=== PATIENT | female | born 1985 | race Caucasian/White ===

== ENCOUNTER 2017-11-25 16:10 | Emergency (ER) | payer BC ==
[~2017-11-25] VITALS: Ht 170.2 cm; Wt 81.7 kg
[~2017-11-25 16:10] MED LIST: Hair, Skin & N1 EACH PO
[2017-11-25] MEDS ORDERED: PROG100 (16:15)
[2017-11-25 16:52] LABS: BASOPHILS ABSOLUTE AUTO 0.03 K/mm3 (0.00-0.23); BASOPHILS PERCENT AUTO 0 % (0-2); EOSINOPHILS ABSOLUTE AUTO 0.44 K/mm3 (0.00-0.68); EOSINOPHILS PERCENT AUTO 4 % (0-6); Hematocrit 42.4 % (33.0-51.0); Hemoglobin 14.1 g/dL (11.5-16.0); IMMATURE GRAN ABSOLUTE AUTO 0.02 K/mm3 (0.00-0.10); IMMATURE GRAN PERCENT AUTO 0 % (0-1); LYMPHOCYTES ABSOLUTE AUTO 3.67 K/mm3 (0.84-5.20); LYMPHOCYTES PERCENT AUTO 30 % (21-46); MONOCYTES ABSOLUTE AUTO 0.59 K/mm3 (0.16-1.47); MONOCYTES PERCENT AUTO 5 % (4-13); Mean Corpuscular HGB 30.3 pg (26.0-34.0); Mean Corpuscular HGB Conc 33.3 g/dL (31.5-36.5); Mean Corpuscular Volume 91 fL (80-100); Mean Platelet Volume 10.3 fL (9.1-12.4); NEUTROPHILS ABSOLUTE AUTO 7.69 K/mm3 (1.96-9.15); NEUTROPHILS PERCENT AUTO 62 % (41-73); Platelet Count 360 K/mm3 (150-400); RDW Coefficient Variation 13.6 % (11.7-14.2); RDW Standard Deviation 44.6 fL (35.1-46.3); Red Blood Cell Count 4.66 M/mm3 (3.80-5.20); White Blood Cell Count 12.44 K/mm3 (4.00-11.30)
[2017-11-25 17:29] LABS: Alanine Aminotransfer (ALT/SGP 26 U/L (12-78); Albumin, Blood 4.1 g/dL (3.4-5.0); Albumin/Globulin Ratio 1.1 (0.8-1.8); Alk Phos 63 U/L (50-136); Anion Gap 7 mmol/L (6-16); Aspartate Aminotrans (AST/SGOT 15 U/L (12-37); Bilirubin, Total 0.3 mg/dL (0.1-1.0); Blood Urea Nitrogen 10 mg/dL (8-24); Bun/Creatinine Ratio 13.4 (12.0-20.0); CO2, Blood 27 mmol/L (21-32); Calcium, Blood 8.7 mg/dL (8.5-10.1); Chloride, Blood 105 mmol/L (98-108); Creatinine, Blood 0.75 mg/dL (0.40-1.00); Globulin, Blood 3.7 g/dL (2.2-4.0); Glomerular Filtration Rate >60 (60-); Glucose, Blood 79 mg/dL (70-99); Potassium, Blood 3.4 mmol/L (3.5-5.5); Sodium, Blood 139 mmol/L (136-145); Total Protein, Blood 7.8 g/dL (6.4-8.2); Troponin I <0.015 ng/mL (0.000-0.040)
== END 2017-11-25 19:10 | disposition home or self-care (01) ==
LOC: ER 16:10
PROVIDERS: Physician Assistant
DX: R07.89 Other chest pain (principal); M79.661 Pain in right lower leg; Z88.5 Allergy status to narcotic agent; Z87.891 Personal history of nicotine dependence
CPT/HCPCS: 36415; 71020; 80053; 84484; 85025; 85379; 93005; 93010; 93971; 99284

== ENCOUNTER 2018-02-12 21:15 | Emergency (ER) | payer BC ==
[~2018-02-12] VITALS: Ht 170.2 cm; Wt 79.4 kg
[~2018-02-12 21:15] MED LIST changes: +PROG100
[2018-02-12] MEDS ORDERED: ALBU90OI INH (22:38)
== END 2018-02-12 23:03 | disposition home or self-care (01) ==
LOC: ER 21:15
DX: J40 Bronchitis, not specified as acute or chronic (principal); Z88.5 Allergy status to narcotic agent; Z87.891 Personal history of nicotine dependence
CPT/HCPCS: 99282

== ENCOUNTER 2019-03-05 11:23 | Day surgery (SDC) | payer BC ==
[~2019-03-05] VITALS: Ht 170.2 cm; Wt 83.5 kg
[~2019-03-05 11:23] MED LIST changes: +ALBU90OI INH; +Multivitamin1 EAC1 PO; +PANT40 PO; +PROG100 PO; +Zantac150 MG PO
[2019-03-05] MEDS ORDERED: HYDCOR20 (11:48)
== END 2019-03-05 13:35 | disposition home or self-care (01) ==
LOC: ORSCSDS 11:23
PROVIDERS: Internal Medicine Gastroenterology
PROC: 0DJD8ZZ Inspection of Lower Intestinal Tract, Via Natural or Artificial Opening Endoscopic (ICD-10-PCS; principal; 2019-03-05 12:45)
PROC: 0DB68ZX Excision of Stomach, Via Natural or Artificial Opening Endoscopic, Diagnostic (ICD-10-PCS; principal; 2019-03-05 12:45)
PROC: 0DB98ZX Excision of Duodenum, Via Natural or Artificial Opening Endoscopic, Diagnostic (ICD-10-PCS; principal; 2019-03-05 12:45)
DX: K62.5 Hemorrhage of anus and rectum (principal); R10.9 Unspecified abdominal pain; K21.9 Gastro-esophageal reflux disease without esophagitis; Z80.0 Family history of malignant neoplasm of digestive organs; K44.9 Diaphragmatic hernia without obstruction or gangrene; Z87.891 Personal history of nicotine dependence; Z79.899 Other long term (current) drug therapy
CPT/HCPCS: 88305; 88342; J2250; J2704; J7120

== ENCOUNTER 2020-05-13 20:31 | Emergency (ER) | payer BC ==
[~2020-05-13] VITALS: Ht 170.2 cm; Wt 86.2 kg
[~2020-05-13 20:31] MED LIST changes: +HYDCOR20
[2020-05-13] MEDS ORDERED: Percocet 5-3251 EACH PO (21:25)
[2020-05-13] MEDS ORDERED: Cyclobenzaprine5 MG PO (21:25)
== END 2020-05-13 21:50 | disposition home or self-care (01) ==
LOC: ER 20:31
DX: M54.5 Low back pain (principal); G89.29 Other chronic pain; Q79.60 Ehlers-Danlos syndrome, unspecified; M50.30 Other cervical disc degeneration, unspecified cervical region; Z88.5 Allergy status to narcotic agent; Z91.09 Other allergy status, other than to drugs and biological substances; Z87.891 Personal history of nicotine dependence
CPT/HCPCS: A9270

== ENCOUNTER 2020-06-05 07:16 | Day surgery (SDC) | payer BC, OTHER ==
[~2020-06-05] VITALS: Ht 170.2 cm; Wt 89.8 kg
[~2020-06-05 07:16] MED LIST changes: +Cyclobenzaprine5 MG PO; +Percocet 5-3251 EACH PO
[2020-06-05] MEDS ORDERED: METO25ER PO (08:16)
[2020-06-05] MEDS ORDERED: OXYC5 PO (22:54)
== END 2020-06-05 12:18 | disposition home or self-care (01) ==
LOC: ORSCSDS 07:16
PROVIDERS: Otolaryngology
PROC: 09BM4ZZ Excision of Nasal Septum, Percutaneous Endoscopic Approach (ICD-10-PCS; principal; 2020-06-05 08:30)
PROC: 8E09XBZ Computer Assisted Procedure of Head and Neck Region (ICD-10-PCS; principal; 2020-06-05 08:30)
PROC: 09DU4ZZ Extraction of Right Ethmoid Sinus, Percutaneous Endoscopic Approach (ICD-10-PCS; principal; 2020-06-05 08:30)
PROC: 09TL4ZZ Resection of Nasal Turbinate, Percutaneous Endoscopic Approach (ICD-10-PCS; principal; 2020-06-05 08:30)
PROC: 09BL4ZZ Excision of Nasal Turbinate, Percutaneous Endoscopic Approach (ICD-10-PCS; principal; 2020-06-05 08:30)
PROC: 09DV4ZZ Extraction of Left Ethmoid Sinus, Percutaneous Endoscopic Approach (ICD-10-PCS; principal; 2020-06-05 08:30)
DX: J32.4 Chronic pansinusitis (principal); J34.2 Deviated nasal septum
CPT/HCPCS: 88305; 88311; C2625; J0330; J1100; J2250; J2405; J3010; J7120